=== PATIENT | female | born 1965 | race Two or more races ===

== ENCOUNTER 2018-10-21 01:17 | Emergency (ER) | payer MEDICAID ==
[~2018-10-21] VITALS: Ht 157.5 cm; Wt 79.4 kg
[2018-10-21 01:27] VITALS: BP 135/67
== END 2018-10-21 03:29 | disposition left against medical advice (07) ==
LOC: ER 01:19
DX: L25.8 Unspecified contact dermatitis due to other agents (principal); T50.995A Adverse effect of other drugs, medicaments and biological substances, initial encounter; Z53.21 Procedure and treatment not carried out due to patient leaving prior to being seen by health care provider; Y92.9 Unspecified place or not applicable
CPT/HCPCS: 82962; 93005